=== PATIENT | female | born 1950 | race Caucasian/White ===

== ENCOUNTER 2023-02-21 10:01 | Day surgery (SDC) | payer MEDICARE, SELFPAY ==
[2023-02-21] VITALS (8 sets, daily range): BP systolic 99–153; BP diastolic 60–95; PULSE 57–91; RESP 14–22; TEMP 36.1–36.6; O2SAT 95–99; BMI 22.1
--- NOTE | 2023-02-21 10:00 | DI.NM_ITS ---
Exam(s) NM SENTNODE INJ AND SCAN EXAM: NM SENTNODE INJ AND SCAN CLINICAL HISTORY: RT PARTIAL MASTECTOMY WITH SENTINEL NODE BIOPSY. TECHNIQUE: Injected Dose: 1 mCi Tc-99m filtered sulfur colloid Images: 60 minutes COMPARISON: No exams were available for comparison FINDINGS: There is intense uptake in the region of the administered sulfur colloid. There is a small focal area of increased uptake along the axilla consistent with a sentinel node. IMPRESSION: 1. [place] node uptake in the axilla. DATA REPOSITORY:
--- NOTE | 2023-02-21 10:36 | W.SURGCON ---
Date of service: 02/21/23 Time of Service: 10:36 Assessment and Plan Assessment and plan (1) Breast cancer: Status: Chronic Assessment and plan: 72-year-old woman with a right?sided T1b invasive ductal carcinoma ER positive, [place] negative and HER2 negative. Plan is right?sided partial mastectomy with sentinel lymph node biopsy She will have adjuvant radiation therapy after. History of Present Illness Narrative: 72-year-old woman is here for her right?sided breast cancer surgery with sentinel lymph node biopsy. She had needle localization done this morning. 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 denies Surgical History liver biopsy 2001 HYSTERECTOMY EGD - IV Sedation 2002 Colonoscopy - IV Sedation 2004 Extraction of cataract B/L SURGERY Reduction mammoplasty (01/04/02) Family History (Updated 09/15/15 @ 14:18 by Naty Ballard) Other Cervical cancer Lung cancer Social History Smoking/Tobacco Use Status: Former Tobacco Use Quit Date: 01/04/23 Smoking risk assessment performed?: Yes Alcohol Intake: never Drug use: Never Substance use type: does not use Housing: house Do you feel safe at home: Yes Do you feel safe in your relationship?: Yes Exam Narrative Exam Narrative: General: Nontoxic, comfortable and interactive Neuro: Alert and oriented x3 Psych: Good mood and affect, good insight and understanding into her condition Chest: Nonlabored breathing Heart: Regular
--- NOTE | 2023-02-21 12:02 | W.ANESPRE ---
General Info Date of Service Date Performed: 02/21/23 Height: 5 ft 4 in Weight: 58.4 kg Body Mass Index (BMI): 22.1 Surgical Procedure: Operation Date: 02/21/23 12:10 Proposed Procedure Side Surgeon p Partial Masectomy w/ Sentinal Node Biopsy Right Tj Schaffer MD Meds Allergies and Home Medications Allergies Allergy/AdvReac Type Severity Reaction Status Date / Time codeine Allergy Intermediate Skin Rash Unverified 02/21/23 10:38 Penicillins Allergy Unknown Unverified 02/21/23 10:38 Home Medication Medication Instructions Recorded Centrum Silver 0.4 mg-300 mcg-250 1 ea PO DAILY 09/19/15 mcg tablet (yhjitmzz-xqg-LZ-lycopen-lutein) ergocalciferol (vitamin D2) 10 mcg 400 units PO DAILY 09/19/15 (400 unit) tablet hydrochlorothiazide 25 mg tablet 25 mg PO DAILY 09/19/15 ursodiol 300 mg capsule 600 mg PO BID 09/20/15 alendronate 70 mg tablet 70 mg PO QWEEK 02/20/23 lisinopril 40 mg tablet 40 mg PO DAILY 02/20/23 Current Visit Medications: Current Medications Generic Name Dose Route Start Last Admin Trade Name Freq PRN Reason Stop Dose Admin Ringer's Solution 1,000 mls @ 80 mls/hr 02/21/23 06:00 IV 03/22/23 23:59 INFUSION MALINA IV Miscellaneous Supplies 1 each 02/21/23 06:00 Iv Access IV 03/22/23 23:59 DIRECTED MALINA Sodium Chloride 0 ml 02/21/23 06:00 Normal Saline Flush 10 Ml Syr IV 03/22/23 23:59 PRN PRN Sodium Chloride 0 ml 02/21/23 06:00 Normal Saline 10 Ml Vial IJ 03/22/23 23:59 DIRECTED PRN Sterile Water 0 ml 02/21/23 06:00 Water,Injection,Sterile 10 Ml Vial IJ 03/22/23 23:59 DIRECTED PRN PFSH Active Problems Active Problems: Problem Status Onset Code Breast cancer C50.919 Medical History Medical History (Updated 02/21/23 @ 10:40 by Tj Schaffer MD) Hypertension 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 denies Surgical History Surgical History liver biopsy 2002 HYSTERECTOMY EGD - IV Sedation 2002 Colonoscopy - IV Sedation 2004 Extraction of cataract B/L SURGERY Reduction mammoplasty (01/04/02) Tobacco Smoking/Tobacco Use Status: Former Tobacco Use Alcohol Alcohol Intake: never Substance Use Substance use: Never Substance use type: does not use Vital Signs and Lab Results Vital Signs Most Recent Vital Signs in EMR: Most Recent Vital Signs Temp Pulse Resp BP Pulse Ox 36.6 C 91 H 20 153/75 H 95 02/21/23 10:32 02/21/23 10:32 02/21/23 10:32 02/21/23 10:32 02/21/23 10:32 Lab Results Blood Type / Crossmatch: No Data to Display Complete Blood Count: No Data to Display Complete Metabolic Panel: No Data to Display Liver Function Panel: No Data to Display Coagulation Panel: No Data to Display Cardiac Panel: No Data to Display Arterial Blood Gas: No Data to Display Venous Blood Gas: No Data to Display Pancreas Panel: No Data to Display Thyroid Panel: No Data to Display Infectious Disease: No Data to Display Blood Cultures: No Data to Display Toxicology Panel: No Data to Display Anesthesia Assessment and Plan Anesthesia History Personal History: No History of Anesthesia Complications Family History: No Family History of Anesthesia Complications Exercise Tolerance Exercise Tolerance: Metabolic Equivalents>4 Pertinent Negatives Pertinent Negatives: No Symptoms of GERD, No Major Cardiovascular Symptoms or Complaints and No Major Pulmonary Symptoms or Complaints Cardiac & Pulmonary Exam Cardiac Exam: Normal S1/S2 Heart Sounds Pulmonary Exam: Clear Bilateral Breath Sounds Implantable Cardiac Device Does patient have a Pacemaker or an ICD?: No Airway Exam Known Difficult Airway: No Mallampati Class: 1 Mouth Opening: Normal (> 3cm) Thyromental Distance: Greater than 3 cm Neck Range of Motion: Full ROM Neck Circumference: Normal Teeth Condition: Removable Dentures/Plates Upper and Removable Dentures/Plates Lower ASA Classification ASA Score: ASA 3 Emergency Case?: No NPO Status NPO Status: NPO Clears >2 hours, Solids >8 hours Anesthesia Plan Resuscitation Status: Full Code Anesthesia Technique: General Anesthesia Airway Planned: Natural Airway Monitors Used: Standard Monitors
[2023-02-21] MEDS: Lactated Ringers 1,000 ML 80 ML IV (12:33)
--- NOTE | 2023-02-21 12:46 | W.PM.DSUDISC ---
Date of service: 02/21/23 Time of Service: 14:00 Discharge Plan Disposition Condition: Good Discharge Details Attending Provider: Tj Schaffer Primary Care Provider: Almaz Torre Home Meds and New Rx's Prescriptions: No Action ergocalciferol (vitamin D2) 400 UNIT tablet 400 units PO DAILY hydrochlorothiazide 25 MG tablet 25 mg PO DAILY Centrum Silver 1 EACH tablet 1 ea PO DAILY ursodiol 300 MG capsule 600 mg PO BID lisinopril 40 mg tablet 40 mg PO DAILY alendronate 70 mg tablet 70 mg PO QWEEK Discharge Instructions Activity:: Activity as Tolerated Diet:: As Tolerated DS: Diagnosis Discharge Diagnosis (1) Breast cancer: Status: Chronic Asessment and Plan: Your surgery went well. The tumor was removed. The next steps are waiting for pathology results. It is okay to shower. Incision and skin glue can get wet. Remove the glue in 7 days. Wear a tight?fitting bra for comfort and you can use ice and heat as needed. Use Tylenol and ibuprofen for pain relief. Resume your usual diet, any of your usual medications and your regular activities as tolerated.
--- NOTE | 2023-02-21 12:48 | W.PM.OP ---
Date of service: 02/21/23 Time of Service: 12:48 Operative Note Operative Note Refer to Anesthesia Record Procedure Description: Procedures: 1. Right partial mastectomy 2. Axillary sentinel lymph node biopsy Preoperative diagnosis: Invasive breast cancer Postoperative diagnosis: Invasive breast cancer Surgeon: Triston Schaffer Assist: None Anesthesia: General Anesthesiologist: Dayami Indication: 72-year-old woman with ER positive, [place] negative, HER-2 negative invasive breast cancer. No clinical axillary involvement. She presents for lumpectomy and staging of the axilla. Findings: Tumor was excised through a transverse incision. [place] lymph node was mapped on lymphoscintigraphy to the right axilla and was found and removed. Complications: None Estimated Blood Loss: Minimal Grafts or implants: No Specimens removed as follows: -RIGHT breast tumor/partial mastectomy -Long stitches oriented lateral, short stitches oriented superior -Deep margin -Medial margin -Lateral margin -Superior margin -Inferior margin - Re-Excision(deep, lateral, medial and inferior) Procedure in detail: Written consent was obtained from the patient who was in agreement the risks the benefits and indications for the procedure. The patient was taken to the operating suite and given anesthesia and the site was prepped in sterile fashion. A timeout was performed. We confirmed laterality. When we were all in agreement we began the procedure. The patient had had needle localization performed. A transverse incision was made directly over top of the known location of the tumor with a #10 blade. A combination of blunt and sharp dissection using electrocautery for hemostasis was performed and I cut down directly towards the tumor and the wire. Excellent retraction technique allowed me to identify the plane within normal breast tissue met the desmoplastic reactions of the tumor and at this point I circumferentially mobilized and cored out the tumor from all aspects using the wire to keep myself oriented. The specimen was excised in its entirety. Care and caution was taken to keep the specimen oriented and I placed suture markers as noted above. The specimen was then sent to radiology for x-ray confirmation of complete excision of the suspicious lesion including the clip that had been placed at time of biopsy. I then proceeded to take tissue from each standard margins. These were sent permanent. I checked the cavity for hemostasis and used saline to irrigate. The surgical site was dry, hemostasis was excellent. Radiology called into the room we discussed the specimen. They reported there was an intact spiculated mass within the specimen itself and that there was a clip present. However there was concern that the specimen was at the very periphery of the mass that was excised. Careful discussion was made to ensure the location of this edge in accordance with the orientation. I re?excised in the inferior and deep aspects as well as a small amount of the lateral and medial aspects, while staying inferior. This re-excision tissue was sent as a separate specimen. I then closed the incision in layers. Dermabond was placed on the skin. At this point we changed our instruments. I turned my attention to the axilla. At the inferior aspect of the axillary hair, I made a curvilinear incision sharply with a fresh blade. A combination of blunt and sharp dissection was performed to just underneath the pectoralis minor muscle insertion where the level 2 lymph nodes reside. The gamma probe was used to identify the sentinel lymph node and a small, roughly 1 x 2 cm packet of tissue including this lymph node was excised. After excision, the gamma probe was reintroduced into the axilla and no further radiotracer uptake was encountered. On the back table, the excised packet of lymph tissue was reexamined with the gamma probe and confirmed to be the sentinel node as it still had a very high count. Satisfied that I had my sentinel node and there were no other significantly radioactive nodes present, I finished the procedure by closing the axillary incision in layers. Dermabond was placed on top. The sponge, instrument and sharps count was correct x3 at the end of the procedure. The patient tolerated the procedure well and was taken to the PACU in hemodynamically stable condition.
--- NOTE | 2023-02-21 12:58 | NUR.NOTE ---
Nursing into finalize pt preop and noticed pt OP site was not marked by surgeon. Charge nurse and OR lead Dayami Hopson RN notified and advised this nurse ok to send pt to OR without marking to indicate surgical site. Bandage to tegaderm to right breast in place and this nurse advised this was sufficient.
--- NOTE | 2023-02-21 13:35 | BREAST_PTH ---
PATIENT: Lucía Perdue LOC: [facility] U#:[id number] AGE/SX: 72/F ROOM: RE02/21/[address]: Tj Schaffer : 1950 BED: DIS: 02/21/2023 SPEC #: [id number] RECD: 02/22/23 11:06 STATUS: FELICE RERajat #: [id number] KATRINA: 02/21/23 13:[address]: Tj Schaffer DEPT: Surgical Specimen RECD BY: Tanisha Katz ENTERED: 02/22/23 11:14 SP TYPE: Breast OTHR DR: Almaz Torre Tissues: 1 - BREAST MASTECTOMY PARTIAL/SIMPLE 2 - BREAST MASTECTOMY PARTIAL/SIMPLE 3 - BREAST MASTECTOMY PARTIAL/SIMPLE 4 - BREAST MASTECTOMY PARTIAL/SIMPLE 5 - BREAST MASTECTOMY PARTIAL/SIMPLE 6 - BREAST MASTECTOMY PARTIAL/SIMPLE 7 - LYMPH NODE BIOPSY 8 - BREAST MASTECTOMY PARTIAL/SIMPLE Procedures: IMMUNOPEROXIDASE STAIN GROSS AND MICRO LEVEL 5 [id number] IPEX ESTROGEN/PROGESTERONE RECEPTOR IPEX STAIN Comments: [id number] (ALL SPECIMENS RADIOACTIVE)
--- NOTE | 2023-02-21 14:00 | DI.MAMMO_ITS ---
Exam(s) MG MAMMO SPECIMEN EXAM: MG MAMMO SPECIMEN CLINICAL HISTORY: BREAST CANCER. TECHNIQUE: Single breast specimen image was obtained. COMPARISON: Comparison is made with prior examinations. FINDINGS: The breast specimen image was obtained. The spiculated density is seen at the edge of the breast spe cimen. The biopsy clip is located wholly in the breast specimen.The findings were discussed with Dr. Schaffer, of the department of surgery, in the OR on the date of the examination. The location of th e spiculated mass within the specimen was discussed with the surgeon in detail. Impression: Right breast specimen as described above.
[2023-02-21] MEDS: Bupivacaine 0.5% Pres-Free W/EPI 30 ML VIAL IJ (14:05)
--- NOTE | 2023-02-21 15:03 | W.ANESPOSTOP ---
Postoperative Evaluation Date, Time and Location Date Performed: 02/21/23 Time Performed: 15:03 Patient Location: Day Surgery Unit Vital Signs Most Recent Imported Vital Signs: Most Recent Vital Signs Temp Pulse Resp BP Pulse Ox 36.2 C L 59 L 15 142/89 H 95 02/21/23 14:50 02/21/23 14:50 02/21/23 14:50 02/21/23 14:50 02/21/23 14:50 Pain Score Most Recent Pain Score: Most Recent Pain Score Pain Level 0 02/21/23 10:32 Assessment Mental Status: Awake (Alert & Oriented to Patient Baseline) Airway and Respiratory Function: Patent airway with normal (patient baseline) respiratory exam Cardiovascular Function: Hemodynamically Stable Hydration Status: Adequately Hydrated Nausea & Vomiting: No Nausea or Vomiting Pain: Pt. Denies Any Pain Peripheral Nerve Block: Patient did not receive a nerve block
--- NOTE | 2023-02-21 23:54 | W.PROCNOTE ---
Date of service: 02/21/23 Time of Service: 11:00 Procedure Note Procedure Description: Procedure performed: Radiotracer injection Indication for procedure: Breast cancer with need for sentinel lymph node biopsy Procedure in detail: The patient gave written consent. The right breast and injection site was prepped and draped in sterile fashion. 4?quadrant intradermal injection was performed in the nipple?areolar complex. Serial lymphoscintigraphy was then performed. A right axillary lymph node mapped at about the [id number] julio.
== END 2023-02-21 16:12 | disposition home or self-care (01) ==
PROVIDERS: PCP Registered Nurse; Visit Provider Student in an Organized Health Care Education/Training Program
PROC: (CPT 38525; principal; 2023-02-21 12:00)
DX: C50.911 Malignant neoplasm of unspecified site of right female breast (principal); I10 Essential (primary) hypertension; Z79.899 Other long term (current) drug therapy; F32.A Depression, unspecified; K74.3 Primary biliary cirrhosis; Z17.0 Estrogen receptor positive status [ER+]
CPT/HCPCS: 38525; 19301; 00123; 77061; 77065; 88305; 88360; 78195; 88307; 88361; G0279; J1100; J2250; J2405; J2704